=== PATIENT | female | born 1960 | race Two or more races ===

== ENCOUNTER 2024-03-17 06:42 | Emergency (ER) | payer MEDICAID, SELFPAY ==
[2024-03-17 06:43] VITALS: BMI 39.3
[2024-03-17 06:56] VITALS: BP 128/81; PULSE 108; RESP 18; TEMP 39.6; O2SAT 96
--- NOTE | 2024-03-17 06:59 | XR_ITS ---
Examination: PA lateral chest 2 views Technique: Upright PA lateral chest 2 views Exam date and time: March 17, 2024 0723 hrs. Indications: Fever nausea vomiting beginning 3 days ago Findings: Normal heart size The lungs are clear. The osseous structures are intact Impression: No active disease
--- NOTE | 2024-03-17 07:02 | EDNOTE_ITS ---
ED Fever RME/HPI General Chief Complaint: Fever Stated Complaint: FEVER, VOMITING Time Seen by Provider: 03/17/24 06:47 Arrival date/time: 03/17/24 06:42 Limitations: no limitations RME / HPI RME / HPI Narrative: High fever, fatigue, nausea and body aches x 3 days. No travels. No sore throat or cough. No known sick contacts Related Data Home Medications ?Medication ?Instructions ?Recorded ?Confirmed No Known Home Medications 04/08/20 03/17/24 Allergies Allergy/AdvReac Type Severity Reaction Status Date / Time No Known Allergies Allergy Verified 04/07/20 21:40 Review of Systems Review of Systems Systems Reviewed: All systems reviewed, normal except as documented Physical Exam General Limitations: no limitations General appearance: alert Head Head exam: atraumatic Eye Eye exam: Present normal appearance ENT ENT exam: Present normal exam Neck Neck exam: Present normal inspection Respiratory Respiratory exam: Present normal lung sounds bilaterally Cardiovascular Cardiovascular exam: Present tachycardia Abdominal Exam Abdominal exam: Present soft and hyperactive bowel sounds Extremities Exam Extremities exam: Present normal inspection Back Exam Back exam: Present normal inspection Neurological Exam Neurological exam: Present alert, CN II-XII intact and normal gait Psychiatric Psychiatric exam: Present normal affect and normal mood Skin Skin exam: Present warm and dry ED Exam General Limitations: Present no limitations General appearance: Present alert Head Head exam: Present atraumatic Eye Eye exam: Present normal appearance ENT ENT exam: Present normal exam Neck Neck exam: Present normal inspection Respiratory Respiratory exam: Present normal lung sounds bilaterally Cardiovascular Cardiovascular exam: Present tachycardia Abdominal Exam Abdominal exam: Present soft and hyperactive bowel sounds Extremities Exam Extremities exam: Present normal inspection Back Exam Back exam: Present normal inspection Neurological Exam Neurological exam: Present alert, CN II-XII intact and normal gait Psychiatric Psychiatric exam: Present normal affect and normal mood Skin Skin exam: Present warm and dry Course Quality Measures none Orders Category Date Time Status Bedside COVID-19 Antigen Test NOW Care 03/17/24 07:01 Active Barometers Calibrator STAT Care 03/17/24 06:59 Active Continuous Pulse Oximetry STAT Care 03/17/24 06:59 Completed EKG (ED ONLY) *Do not use* NOW Care 03/17/24 06:59 Completed In and Out Catheter X1PRN Care 03/17/24 06:59 Active Insert IV NOW Care 03/17/24 06:59 Active NPO STAT Care 03/17/24 06:59 Active Strict Intake and Output Routine Care 03/17/24 06:59 Ordered EKG (ED Only) Stat Exams 03/17/24 06:59 Ordered XR chest 2V Stat Exams 03/17/24 06:59 Completed B-Type Natriuretic Peptide Stat Lab 03/17/24 07:39 Completed Blood Culture (Lab) Stat Lab 03/17/24 07:39 Received CBC Stat Lab 03/17/24 07:39 Completed Comprehensive Metabolic Panel Stat Lab 03/17/24 07:39 Results LDH (Lactate Dehydrogenase) Stat Lab 03/17/24 07:39 Results Lactate (Lactic Acid) Stat Lab 03/17/24 07:39 Results Lipase Stat Lab 03/17/24 07:39 Results Magnesium Stat Lab 03/17/24 07:39 Results Partial Thromboplastin Time Stat Lab 03/17/24 07:39 Completed Phosphorous Stat Lab 03/17/24 07:39 Results Procalcitonin Stat Lab 03/17/24 07:39 Results Prothrombin Time with INR Stat Lab 03/17/24 07:39 Completed Troponin I Stat Lab 03/17/24 07:39 Results Urinalysis Stat Lab 03/17/24 09:00 Received Urine Culture Stat Lab 03/17/24 09:00 Received Acetaminophen Tab [Tylenol ES Tab] Med 03/17/24 07:01 Discontinued 1,000 mg PO X1 ONE Sodium Chloride 0.9% 1000 ml [Ns] 1,503 ml Med 03/17/24 06:59 Discontinued IV 1,503 mls/hr cefTRIAXone [Rocephin] 1,000 mg Med 03/17/24 06:59 Discontinued Sodium Chloride 0.9% (P) [Ns 0.9% (P)] 50 ml IV X1 Vital Signs Vital signs: Vital Signs Temperature 103.2 F H 03/17/24 06:56 Pulse Rate 108 H 03/17/24 06:56 Respiratory Rate 18 03/17/24 06:56 Blood Pressure 128/81 03/17/24 06:56 Pulse Oximetry (%) 96 03/17/24 06:56 Fever Patient data External records reviewed:: [facility] previous records Clinical information provided by:: patient Social determinants that could affect healthcare access:: none Patient has the following chronic illnesses:: Patient's sepsis workup was essentially unremarkable. Has a slightly elevation in her white count. She is stable and her collective symptoms are suggestive of a viral illness. How is presenting disease/condition affected by chronic disease/condition?: no chronic disease Evaluation data The following diagnostics were reviewed and interpreted by me:: lab results Lab and/or radiology exams considered but not ordered:: As noted above Interpretation Summary: Consistent with viral illness Medications / Prescriptions Medications or Prescriptions considered but not ordered:: Not applicable Medication administrations:: Medication Administration History Discontinued Medications Acetaminophen (Acetaminophen 500 Mg Tablet) 1,000 mg PO X1 ONE Stop: 03/17/24 07:02 Last Admin: 03/17/24 07:44 Dose: 1,000 mg Documented By: ARF Sodium Chloride (Ns) 1,503 mls @ 1,503 mls/hr 30 ml/kg infuse over 60 min (1503 ml) IV .Q1H ONE Stop: 03/17/24 07:58 Last Infusion: 03/17/24 09:25 Dose: Infused Documented By: Admin: 03/17/24 07:45 Dose: 1,503 mls/hr Documented By: ARF Ceftriaxone Sodium 1,000 mg/ (Sodium Chloride) 50 mls @ 100 mls/hr IV X1 ONE Stop: 03/17/24 07:28 Last Infusion: 03/17/24 09:25 Dose: Infused Documented By: Admin: 03/17/24 08:02 Dose: 100 mls/hr Documented By: ARF Noted Consultations Consultation(s) initiated? (list below): No Diagnosis Fever Differential Diagnosis: fever of unknown origin, community acquired pneumonia, viral infection and sepsis Most likely diagnosis given after review of the tests above:: Viral illness Admission Indicated Admission indicated?: not indicated Admission Request Was there a request for admission?: No Disposition Plan Disposition Plan: Discharge Discharge Attestation Discharge Attestation: The patient and all family members were given an opportunity to ask questions and understood the discharge instructions. Discharge instructions specifically effects, indications for sooner follow up or return to the emergency department, and the expected course of current diagnosis. Patient condition: Stable Discharge Plan Plan Patient Disposition: HOME (Self Care) Patient condition on transfer: Stable Prescriptions/Referrals Prescriptions/Med Rec: No Action No Known Home Medications Referrals: No Primary/Family,Physician [Primary Care Provider] - In 1 week Problem List Clinical Impression: Viral illness Patient/Caregiver Discharge Instructions Education Materials: ED Viral Syndrome (Adult) Print Language: Albanian Stand Alone Forms: [employer]., Patient Portal Info Letter
[2024-03-17 07:44] VITALS: TEMP 39.6
[2024-03-17] MEDS: ACETAMINOPHEN 500 MG TABLET 1000 MG PO (07:44)
[2024-03-17] MEDS: SODIUM CHLORIDE 0.9% 1000 ML 1,503 ML 1503 ML IV (07:45)
[2024-03-17] MEDS: cefTRIAXone 1,000 MG in SODIUM CHLORIDE 0.9% (P) 50 ML 100 MG IV (08:02)
[2024-03-17 08:19] LABS: Lactate (Lactic Acid) 2.3 mMol/L (0.4-2.0)
[2024-03-17 08:24] VITALS: BP 107/79; PULSE 105; RESP 18; TEMP 38.4; O2SAT 95
[2024-03-17 08:37] LABS: Basophils % (Auto) 0 % (0-2.5); Eosinophils # (Auto) 0.2 Thou/mm3 (0.0-0.5); Eosinophils % (Auto) 1 % (0-10); Hematocrit 39.2 % (36.0-46.0); Hemoglobin 13.3 g/dL (12.0-16.0); Immature Granulocytes % (Auto) 1 % (0-0); Immature Granulocytes Auto 0.14 Thou/mm3 (0.00-0.00); Lymphocytes # (Auto) 0.9 Thou/mm3 (1.0-4.8); Lymphocytes % (Auto) 5 % (10-50); Mean Corpuscular HGB Conc 33.9 g/dl (31.0-37.0); Mean Corpuscular Hemoglobin 28.1 pg (25.0-35.0); Mean Corpuscular Volume 83 fL (80-100); Monocytes # (Auto) 1.2 Thou/mm3 (0.0-0.8); Monocytes % (Auto) 7 % (0-12); Neutrophils # (Auto) 15.5 Thou/mm3 (1.8-7.7); Neutrophils % (Auto) 87 % (37-80); Nucleated Red Blood Cell % 0 /100 WBC (0); Platelet Count 168 Thou/mm3 (140-440); RDW Standard Deviation 44.2 fL (36.4-46.3); Red Blood Count 4.73 Miln/mm3 (4.00-5.20); White Blood Count 17.9 Thou/mm3 (3.6-11.0)
[2024-03-17 08:45] LABS: INR 1.2 (0.9-1.3); Partial Thromboplastin Time 28.5 Seconds (22.0-36.0); Prothrombin Time 12.5 Seconds (9.0-12.2)
[2024-03-17 09:00] LABS: B-Type Natriuretic Peptide 36 pg/mL (0-100)
[2024-03-17 09:17] VITALS: BP 105/79; PULSE 95; RESP 18; TEMP 37.7; O2SAT 95
[2024-03-17 09:23] LABS: Alanine Aminotransferase 26 U/L (10-49); Albumin, Serum 4.3 gm/dL (3.4-4.8); Albumin/Globulin Ratio 1.4 (1.2-2.2); Alkaline Phosphatase 174 U/L (46-116); Anion Gap 9 (7-16); Aspartate Amino Transferase 34 U/L (0-34); BUN/Creatinine Ratio 16 Ratio (12-20); Blood Urea Nitrogen 21 mg/dL (9-23); Calcium 9.2 mg/dL (8.3-10.6); Calcium (Corrected) 9.2 mg/dL (8.5-10.1); Carbon Dioxide 23.1 mMol/L (20.0-31.0); Chloride 100 mMol/L (98-107); Creatinine (Component) 1.3 mg/dL (0.6-1.3); Estimated Creatinine Clearance 48.3 mL/min (>60); Glucose 142 mg/dL (74-106); Lipase 28 U/L (12-53); Osmolality,Calculated 269 (275-295); Phosphorous 1.8 mg/dL (2.4-5.1); Potassium 4.1 mMol/L (3.4-5.1); Procalcitonin 13.96 ng/ml (0.0-0.49); Sodium 132 mMol/L (136-145); Total Protein 7.3 gm/dL (5.7-8.2); Troponin I < 0.020 ng/mL (0.0-0.045); eGFR 46 See Note
[2024-03-17 09:25] VITALS: TEMP 37.7
[2024-03-17 10:03] LABS: Collection Type, Urine Clean Catch
[2024-03-17 10:46] LABS: Bacteria,Urine 2+; Bilirubin,Urine Negative (Negative); Blood,Urine 2+ (Negative); Color,Urine Yellow (Lt Yel-Yel); Glucose, Urine Negative (Negative); Ketones,Urine 2+ (Negative); Leukocyte Esterase,Urine Positive (Negative); Nitrite,Urine Negative (Negative); PH,Urine 5.5 (5.0-7.0); Protein,Urine 1+ (Neg - Trace); RBC,Urine 9 /hpf (0-3); Specific Gravity,Urine 1.016 (1.001-1.035); Squamous Epithelial Cell,Urine 17 /hpf (0-5); Transitional Epi Cells,Urine 1 /hpf (0-5); WBC,Urine 1530 /hpf (0-5)
[2024-03-17 10:47] LABS: Clarity,Urine Turbid (Clear/Hazy)
[2024-03-17 11:14] LABS: Reflex Lactate? Y
[2024-03-17 12:17] LABS: Bilirubin,Total 1.7 mg/dL (0.3-1.2)
[2024-03-17 12:28] LABS: LDH (Lactate Dehydrogenase) 467 U/L (120-246)
== END 2024-03-17 11:48 | disposition home or self-care (01) ==
PROVIDERS: Emergency Provider Emergency Medicine
DX: B34.9 Viral infection, unspecified (principal)
CPT/HCPCS: 36415; 71046; 80053; 81001; 83605; 83615; 83690; 83735; 83880; 84100; 84145; 84484; 85025; 85610; 85730; 87040; 87077; 87086; 87186; 87400; 87502; 87811; 93005; 99284; J0696; J7030; J7050; A9270

== ENCOUNTER 2024-07-31 14:14 | Outpatient (AMB) | payer MEDICAID, SELFPAY ==
[2024-07-31 14:30] VITALS: BP 146/81; PULSE 76; RESP 19; TEMP 36.6; O2SAT 98; BMI 44.8
--- NOTE | 2024-07-31 14:30 | ORTHONT_ITS ---
Vital signs 07/31/24 14:30 Height 1.57 m Height Method Stated Weight 111.13 kg Weight Measurement Method Standing Scale BMI 44.8 BP 146/81 H Blood Pressure Source Automatic Cuff Blood Pressure Location Right Lower Arm Position Sitting Respiration 19 Pulse 76 Pulse Source Monitor Temp 97.8 F Temp Source Temporal Artery Scan Pulse Oximetry (%) 98 Oxygen Delivery Method Room Air Med/Allergies Allergies & Medications Allergies No Known Allergies Allergy (Verified 07/31/24 14:32) Exam Exam Patient is in no acute distress and is cooperative with the examination today. Breathing is nonlabored. Patient has a normal mood and affect. Bilateral extremities were evaluated and demonstrates sensation intact to light touch. Palpable pedal pulses are present. No significant edema is present. Bilateral hips were examined. The patient has no pain with log roll of the hips. Internal rotation to 30 degrees and external rotation to 30 degrees is painless. Negative FADIR. Right knee was examined today. The right knee is in reasonable alignment. Range of motion from 0-120 degrees. Knee is stable to varus and valgus as well as AP translation with <5mm. Patient has a negative McMurrays. There is no pain with patellofemoral compression and no crepitus noted. The knee is nontender to palpation. Left knee was examined today. The left knee is in varus alignment. Range of motion from 0-115 degrees. Knee is stable to varus and valgus as well as AP translation with <5mm. Patient has a negative McMurrays. There is no pain with patellofemoral compression and no crepitus noted. The knee is tender to palpation medially. Assessment and Plan Problem List (1) Arthritis of left knee: Status: Acute Plan: Pleasant 63-year-old female with left knee arthritis and right knee pain as well. Will get weightbearing x-rays. We discussed different treatment options quitting weight loss, anti-inflammatories, injections. We prescribed her meloxicam. We will likely see her at the next visit for injections. We also discussed weight loss given her BMI Office Procedures GNS Level of Care Nursing/Assessment Patient Status: Initial/New Patient Nursing Assessment/Reassesment: Medication Reconciliation, Update PMH in EMR and Vital Signs Coordination of Care: Complex Care/Chronic Disease 5 or more, Education Complex Pt/Fam, Consent,records obtained, informed consent, Results/Orders obtained and Staff clarify orders New Patient Charge New Patient Point Assignment: 1104 New Patient Point Charge: MEDICAL CLAIMS REPRESENTATIVE Level 3 ([id number]) [place] Intake Visit Data Collection New Patient or Established: Established Patient (seen at [facility] within 3 years) Reason for Visit:: LEFT KNEE OSTEOARTHRITIS Do You Feel Safe at Home: Yes Questionairres Past Medical History Past Medical History Have you ever been diagnosed with any of the following: Cardiology Problems Congestive Heart Failure: No Respiratory Problems Chronic Obstructive Pulmonary Disease (COPD): No Smoking: No Smoking Exposure: No Genital/Urinary Problems Renal Disease: No Reproductive Problems Previous Pregnancies: Yes Endocrine Problems Diabetes Mellitus Type 1: No Diabetes Mellitus Type 2: No Psychologic Problems Depression: Yes Other Problems Anesthesia Reactions: No MRSA: No Clostridium Difficile: No Cancer: No Subjective Visit Visit for: new patient and knee Immunization / Flu Flu Vaccine in the Last 12 Months: Yes Flu Vaccine Exclusion Criteria: Already Received History of Present Illness Chief complaint: LEFT KNEE OSTEOARTHRITIS Patient is a pleasant 63-year-old female with left knee pain. His knee pain has been ongoing for several years. She has not had any injections and takes ibuprofen. She reports a lot of pain going down her arm particular Personal History Occupation: [employer] PMH: BMI and none BMI Counceling provided: Yes Pain Pain level (0-10): 0 Pain duration: INTERMITTENT Pain location: anterior Pain quality: sharp Associated signs & symptoms: none Ambulatory data Ambulatory device: none Treatments Improvement with previous injections: No Improvement with PT: Yes Review of Systems Review of Systems: All systems negative unless otherwise noted in HPI.
--- NOTE | 2024-07-31 14:36 | XR_ITS ---
Examination: Bilateral AP knees 2 views Right lateral knee left lateral knee 2 views Right axial knee left axial knee 2 views Technique: Bilateral AP knees standing single view, bilateral PA knees standing single view flexion Standing right lateral knee left lateral knee 2 views Right axial knee left axial knee 2 views total 6 views Exam date and time: July 31, 2024 1452 hrs. Indications: Bilateral knee pain beginning 2 years ago. Findings: Moderate osteopenia Bilateral advanced tricompartment osteoarthritis Bilateral severe narrowing [id number] medial joint spaces No fractures Impression: Bilateral advanced tricompartment osteoarthritis
== END 2024-07-31 14:47 | disposition home or self-care (01) ==
LOC: HODSRG 14:14
PROVIDERS: PCP Physician Assistant; Referring Provider Physician Assistant; Supervising Provider Orthopaedic Surgery Adult Reconstructive Orthopaedic Surgery; Visit Provider Orthopaedic Surgery Adult Reconstructive Orthopaedic Surgery
DX: M17.0 Bilateral primary osteoarthritis of knee (principal); M25.561 Pain in right knee
CPT/HCPCS: 73564; 99203; G0463

== ENCOUNTER 2024-08-16 09:47 | Outpatient (AMB) | payer MEDICAID, SELFPAY ==
--- NOTE | 2024-08-16 10:34 | ORTHONT_ITS ---
Vital signs 08/16/24 10:35 Height 1.57 m Height Method Stated Weight 112.094 kg Weight Measurement Method Standing Scale BMI 45.4 BP 134/78 H Blood Pressure Source Automatic Cuff Blood Pressure Location Right Upper Arm Position Sitting Respiration 19 Pulse 71 Pulse Source Monitor Temp 97.9 F Temp Source Temporal Artery Scan Pulse Oximetry (%) 96 Oxygen Delivery Method Room Air Med/Allergies Allergies & Medications Allergies No Known Allergies Allergy (Verified 08/16/24 10:36) Medication Reconciliation ciprofloxacin HCl 500 mg tablet (Cipro) 500 mg PO BID #10 tabs 03/17/24 [Rx Conf irmed 08/16/24] meloxicam 7.5 mg tablet 7.5 mg PO QDAY #45 tabs 07/31/24 [Rx Confirmed 08/16/24] Exam Exam Patient is in no acute distress and is cooperative with the examination today. Breathing is nonlabored. Patient has a normal mood and affect. Bilateral extremities were evaluated and demonstrates sensation intact to light touch. Palpable pedal pulses are present. No significant edema is present. Bilateral hips were examined. The patient has no pain with log roll of the hips. Internal rotation to 30 degrees and external rotation to 30 degrees is painless. Negative FADIR. Right knee was examined today. The right knee is in reasonable alignment. Range of motion from 0-120 degrees. Knee is stable to varus and valgus as well as AP translation with <5mm. Patient has a negative McMurrays. There is no pain with patellofemoral compression and no crepitus noted. The knee is nontender to palpation. Left knee was examined today. The left knee is in varus alignment. Range of motion from 0-115 degrees. Knee is stable to varus and valgus as well as AP translation with <5mm. Patient has a negative McMurrays. There is no pain with patellofemoral compression and no crepitus noted. The knee is tender to palpation medially. We reviewed x-rays which demonstrates bilateral joint space narrowing With medial Joint space obliteration and varus deformity Assessment and Plan Problem List (1) Arthritis of left knee: Status: Acute Plan: Pleasant 63-year-old female with left knee arthritis and right knee pain as well. She has bilateral knee arthritis.She does not want injections today as she has minimal pain from the anti-inflammatories Office Procedures GNS Level of Care Nursing/Assessment Patient Status: Established Patient Nursing Assessment/Reassesment: Medication Reconciliation, Update PMH in EMR and Vital Signs Coordination of Care: Complex Care and Chronic Disease 1-5, Education Complex Pt/Fam, Consent,records obtained, informed consent, Results/Orders obtained and Staff clarify orders Established Patient Charge Established Patient Point Assignment: 95 Established Patient Point Charge: EP Level 3 (80-115) MA Intake Visit Data Collection New Patient or Established: Established Patient (seen at [facility] within 3 years) Reason for Visit:: LEFT KNEE OSTEOARTHRITIS Seen by Clinical Staff ONLY (RN/MA): No Verbal consent obtained for Telemed visit?: No Executive Steward Required: No PCP or OBGYN visit in last 3 months: Yes Hx Now: No Do You Feel Safe at Home: Yes Authorities Contacted: N/A Questionairres Past Medical History Past Medical History Have you ever been diagnosed with any of the following: Cardiology Problems Congestive Heart Failure: No Respiratory Problems Chronic Obstructive Pulmonary Disease (COPD): No Smoking: No Smoking Exposure: No Genital/Urinary Problems Renal Disease: No Reproductive Problems Previous Pregnancies: Yes Endocrine Problems Diabetes Mellitus Type 1: No Diabetes Mellitus Type 2: No Psychologic Problems Depression: Yes Other Problems Anesthesia Reactions: No MRSA: No Clostridium Difficile: No Cancer: No Subjective Visit Visit for: new patient, follow up visit and knee Immunization / Flu Flu Vaccine in the Last 12 Months: Yes Flu Vaccine Exclusion Criteria: Already Received History of Present Illness Chief complaint: LEFT KNEE OSTEOARTHRITIS Patient is a pleasant 63-year-old female with left knee pain. His knee pain has been ongoing for several years. She has not had any injections and takes ibuprofen and meloxicam. She is here for xray results and is happy with her pain relief. Personal History Occupation: [employer] PMH: BMI and none BMI Counceling provided: Yes Pain Pain level (0-10): 0 Pain duration: INTERMITTENT Pain location: anterior Pain quality: sharp Associated signs & symptoms: none Ambulatory data Ambulatory device: none Treatments Improvement with previous injections: No Improvement with PT: Yes Improvement with NSAIDS: no Review of Systems Review of Systems: All systems negative unless otherwise noted in HPI.
[2024-08-16 10:35] VITALS: BP 134/78; PULSE 71; RESP 19; TEMP 36.6; O2SAT 96; BMI 45.4
== END 2024-08-16 10:36 | disposition home or self-care (01) ==
LOC: HODSRG 09:47
PROVIDERS: PCP Physician Assistant; Referring Provider Physician Assistant; Supervising Provider Orthopaedic Surgery Adult Reconstructive Orthopaedic Surgery; Visit Provider Orthopaedic Surgery Adult Reconstructive Orthopaedic Surgery
DX: M17.0 Bilateral primary osteoarthritis of knee (principal); M25.561 Pain in right knee
CPT/HCPCS: 99213; G0463